=== PATIENT | female | born 2000 | race Caucasian/White ===

== ENCOUNTER 2019-01-04 15:57 | Outpatient (CLI) | payer BC ==
--- NOTE | 2019-01-04 16:24 | RAD ---
Exam: Right foot 3 views: HISTORY: Right foot pain COMPARISON: None FINDINGS: No evidence for fracture, dislocation, or other significant acute osseous abnormality. IMPRESSION: No acute process. Given history, if the patient has persistent or worsening pain consideration for follow-up MRI which may well demonstrate stress-related changes that would not be evident on plain film evaluation
== END 2019-01-04 15:58 | disposition home or self-care (01) ==
LOC: BICRAD 15:57
PROVIDERS: ATTEND Family Medicine
DX: M79.671 Pain in right foot (principal)

== ENCOUNTER 2021-07-24 09:00 | Outpatient (CLI) | payer OTHER | END 2021-07-24 09:01 | disposition home or self-care (01) | LOC: BICRAD 09:00 | PROVIDERS: ATTEND Nurse Practitioner Family | DX: M54.50 Low back pain, unspecified (principal); M62.830 Muscle spasm of back | CPT/HCPCS: 72100 ==

== ENCOUNTER 2021-08-06 07:47 | Outpatient (CLI) | payer OTHER | END 2021-08-06 07:48 | disposition home or self-care (01) | LOC: TBSIIMAG 07:47 | PROVIDERS: ATTEND Nurse Practitioner Family | DX: M54.50 Low back pain, unspecified (principal); M62.830 Muscle spasm of back; M47.816 Spondylosis without myelopathy or radiculopathy, lumbar region | CPT/HCPCS: 72148 ==